=== PATIENT | male | born 1950 | race Caucasian/White ===

== ENCOUNTER 2018-02-16 15:22 | Outpatient (RCR) | payer MEDICARE ==
[2018-04-26] MEDS ORDERED: PRAV40TA2 PO (15:12)
[2018-04-26] MEDS ORDERED: TAMS0.4C2 PO (15:12)
[2018-04-26] MEDS ORDERED: LISI-552 PO (15:12)
[2018-04-26] MEDS ORDERED: OMEP20CA12 PO (15:12)
[2018-04-26] MEDS ORDERED: ZOLP12.5 PO (15:12)
[2018-05-02] MEDS ORDERED: SULF1TAB35 PO (12:12)
[2018-05-02] MEDS ORDERED: ACET1TAB43 PO (12:12)
[2018-05-02] MEDS ORDERED: CETI10TA17 PO (13:38)
[2018-05-02] MEDS ORDERED: ASPI-808 PO (13:38)
[2018-05-02] MEDS ORDERED: PRAV40TA2 PO (13:38)
== END 2018-05-17 | disposition home or self-care (01) ==
LOC: ONC 15:22
PROVIDERS: ATTEND Radiology Radiation Oncology
DX: C61 Malignant neoplasm of prostate (principal)
CPT/HCPCS: 77331; 99205

== ENCOUNTER 2018-04-26 15:03 | Outpatient (CLI) | payer MEDICARE ==
[~2018-04-26] VITALS: Ht 180.3 cm; Wt 95.3 kg
[2018-04-26] MEDS ORDERED: ZOLP12.5 PO (15:12)
[2018-04-26] MEDS ORDERED: LISI-552 PO (15:12)
[2018-04-26] MEDS ORDERED: PRAV40TA2 PO (15:12)
[2018-04-26] MEDS ORDERED: TAMS0.4C2 PO (15:12)
[2018-04-26] MEDS ORDERED: OMEP20CA12 PO (15:12)
== END 2018-04-26 15:18 | disposition home or self-care (01) ==
LOC: PREOP 15:03
PROVIDERS: ATTEND Radiology Radiation Oncology
DX: Z01.818 Encounter for other preprocedural examination (principal)

== ENCOUNTER 2018-05-02 11:45 | Day surgery (SDC) | payer MEDICARE ==
[~2018-05-02] VITALS: Ht 180.3 cm; Wt 95.3 kg
[~2018-05-02 11:45] MED LIST: LISI-552 PO; OMEP20CA12 PO; PRAV40TA2 PO; TAMS0.4C2 PO; ZOLP12.5 PO
[2018-05-02 11:53] VITALS: BP 131/91
--- NOTE | 2018-05-02 12:07 | Progress Note-Pre Operative ---
Pre-Operative Progress Note H&P Reviewed The H&P was reviewed, patient examined and no changes noted. Date Seen by Provider: May 02, 2018 Time Seen by Provider: 12:06 Date H&P Reviewed: May 02, 2018 Time H&P Reviewed: 12:06 Pre-Operative Diagnosis: Prostate cancer cT1c, PSa 4.97, Stevenson 7 (4+3) AGUSTÍN ZELAYA MD May 02, 2018 12:07
--- NOTE | 2018-05-02 12:10 | Discharge Inst-Simple/Standard ---
Discharge Inst-Standard Discharge Medications New, Converted or Re-Newed RX: RX Given to Pt/Family Patient Instructions/Follow Up Plan of Care/Instructions/FU: 1) Follow up at [facility] for one month post implant scan 05/30/18 at 10:00 am 2) Follow up with Dr. Mejia 06/01/18 at 2:15 pm Activity as Tolerated: Yes Discharge Diet: No Restrictions Other Inst to Patient Instruct patient on priest catheter removal - check with Dr. Mejia - Friday 05/04 /or Monday 05/07 morning. AGUSTÍN ZELAYA MD May 02, 2018 12:10
[2018-05-02] MEDS ORDERED: SULF1TAB35 PO (12:12)
[2018-05-02] MEDS ORDERED: ACET1TAB43 PO (12:12)
[2018-05-02] MEDS ORDERED: ceFAZolin INJECTION 1,000 MG in NS (IVPB) 50 ML IV ONE (12:15)
--- OUTSIDE RECORDS SUMMARY | 2018-05-02 12:30 | XMS REPORT | Continuity of Care Document ---
Author Author [facility] Address Unknown Phone Unavailable Allergies Active Description Code Type Severity Reaction Onset Reported/Identified Relationship to Patient Clinical Status Yes Floxin Drug Allergy N/A N/A 10/15/2011 Medications There is no data. Problems Date Dx Coded Attending Type Code Diagnosis Diagnosed By 10/15/2011 LILY CANALES APRN 473.9 CHRONIC SINUSITIS 12/17/2013 LILY CANALES APRN 599.0 URINARY TRACT INFECTION 03/13/2018 AGUSTÍN ZELAYA MD, Ot C61 MALIGNANT NEOPLASM OF PROSTATE 04/26/2018 Ot Z01.818 ENCOUNTER FOR OTHER PREPROCEDURAL EXAMIN 05/02/2018 AGUSTÍN ZELAYA MD, Ot C61 MALIGNANT NEOPLASM OF PROSTATE Procedures Code [place] [address] UA LONG DIP 12/17/2013 Results There is no data. Encounters ACCT No. Visit Date/Time Discharge Status Pt. Type Provider Facility Loc./Unit Complaint [id number] 12/17/2013 12:59:00 12/17/2013 23:59:59 CLS Outpatient LILY CANALES APRN [id number] 02/16/2018 15:22:00 02/16/2018 23:59:59 CLS Outpatient AGUSTÍN ZELAYA MD Via [facility] ONC [id number] 05/02/2018 11:45:00 ACT Outpatient AGUSTÍN ZELAYA MD [facility] PROSTATE CANCER [id number] 04/26/2018 15:03:00 Document Registration
[2018-05-02] MEDS ORDERED: PRAV40TA2 PO (13:38)
[2018-05-02] MEDS ORDERED: ASPI-808 PO (13:38)
[2018-05-02] MEDS ORDERED: CETI10TA17 PO (13:38)
[2018-05-02] MEDS: LACTATED RINGERS 1,000 ML IV PRN ×2 (13:45→15:05)
[2018-05-02] MEDS ORDERED: ONDANSETRON 4 MG/2 ML (SDV) Z0FRAN ONE (14:07)
[2018-05-02] MEDS ORDERED: proPOfol 200 MG/20 ML (DIPRIVAN) VIAL IV ONE (14:07)
[2018-05-02] MEDS ORDERED: LIDOCAINE PF 2% 2 ML (XYLOCAINE) VIAL ONE (14:07)
[2018-05-02] MEDS ORDERED: fentaNYL INJECTION 100 MCG/2 ML AMP ONE (14:08)
[2018-05-02] MEDS ORDERED: MIDAZOLAM 2 MG/2 ML (VERSED) VIAL ONE (14:08)
[2018-05-02] MEDS ORDERED: SEVOFLURANE (ULTANE) 15 ML INHAL SOLN ONE ×3 (14:12→15:10)
[2018-05-02] MEDS ORDERED: DEXAMETHASONE 10 MG/ML (DECADRON) 1 ML VIAL ONE (14:23)
[2018-05-02] MEDS ORDERED: morphine INJ 10 MG/ML 1ML (SYR OR VIAL) IVP ONE (15:30)
[2018-05-02] MEDS ORDERED: HYDROmorphone 2 MG/ML VIAL (DILAUDID) IV ONE (15:30)
[2018-05-02] MEDS ORDERED: ONDANSETRON 4 MG/2 ML (SDV) Z0FRAN IVP PRN (15:30)
--- NOTE | 2018-05-02 15:30 | Anesthesia-General Post-Op ---
General Patient Condition Mental Status/LOC: Same as Preop Cardiovascular: Satisfactory Nausea/Vomiting: Absent Respiratory: Satisfactory Pain: Controlled Complications: Absent Post Op Complications Complications None Follow Up Care/Instructions Patient Instructions None needed. Anesthesia/Patient Condition Patient Condition Patient is doing well, no complaints, stable vital signs, no apparent adverse anesthesia problems. No complications reported per nursing. SONU ROGERS CRNA May 02, 2018 15:30
--- NOTE | 2018-05-02 15:58 | Progress Note-Post Operative ---
Post-Operative Progess Note Surgeon (s)/Bagger And Stock Handler Helper (s) Surgeon AGUSTÍN ZELAYA MD Bagger And Stock Handler Helper: Jessee TRUONG MD Pre-Operative Diagnosis Prostate cancer cT1c, PSa 4.97, Veto 7 (4+3) Post-Operative Diagnosis Same as pre-op Procedure & Operative Findings Date of Procedure 05/02/18 Procedure Performed/Findings 67% Cesium 131 permanent prostate seed implant, cystogram and insertion of biodegradable prostate-rectal spacer utilizing the SpaceOAR system Prostate volume 33 cc Anesthesia Type General Estimated Blood Loss Estimated blood loss (mL): Minimal Specimens/Packing Specimens Removed None Packing: None AGUSTÍN ZELAYA MD May 02, 2018 15:58
[2018-05-02 16:15] VITALS: BP 147/83
[2018-05-02] MEDS ORDERED: APAP 300 MG/CODEINE 30 MG (TYLENOL #3) TAB PO ONE (16:30)
[2018-05-02 16:45] VITALS: BP 135/84
[2018-05-02 17:35] VITALS: BP 138/84
--- NOTE | 2018-05-02 17:41 | Diagnostic Imaging Report ---
INDICATION: Fluoroscopy during brachytherapy. PROCEDURE: Fluoroscopy was provided for Dr. Little during brachytherapy. 9 seconds of fluoroscopy was utilized. Single image demonstrates multiple radiation seed implants within the prostate. IMPRESSION: Fluoroscopy for brachytherapy. Dictated by: Dictated on workstation # [id number]
== END 2018-05-02 17:35 | disposition home or self-care (01) ==
LOC: SDC 11:45
PROVIDERS: ATTEND Radiology Radiation Oncology
DX: C61 Malignant neoplasm of prostate (principal); Z11.2 Encounter for screening for other bacterial diseases; E78.00 Pure hypercholesterolemia, unspecified; I10 Essential (primary) hypertension; E78.5 Hyperlipidemia, unspecified; K21.9 Gastro-esophageal reflux disease without esophagitis; Z85.828 Personal history of other malignant neoplasm of skin; Z87.891 Personal history of nicotine dependence; Z79.899 Other long term (current) drug therapy
CPT/HCPCS: 76965; 77290; 77318; 77332; 77370; 77470; 77778; 87081

== ENCOUNTER 2018-05-30 12:56 | Outpatient (RCR) | payer MEDICARE ==
[~2018-05-30 12:56] MED LIST changes: +ACET1TAB43 PO; +ASPI-808 PO; +CETI10TA17 PO; +SULF1TAB35 PO
[2018-05-30 13:27] LABS: BUN/CREATININE RATIO 15; CREATININE SERUM 1.02 MG/DL (0.60-1.30); GFR ESTIMATED > 60
== END 2018-08-28 | disposition home or self-care (01) ==
LOC: ONC 12:56
PROVIDERS: ATTEND Radiology Radiation Oncology
DX: C61 Malignant neoplasm of prostate (principal); E78.00 Pure hypercholesterolemia, unspecified; I10 Essential (primary) hypertension; E78.5 Hyperlipidemia, unspecified; K21.9 Gastro-esophageal reflux disease without esophagitis; Z85.828 Personal history of other malignant neoplasm of skin; Z87.891 Personal history of nicotine dependence; Z79.899 Other long term (current) drug therapy
CPT/HCPCS: 36415; 77290; 77295; 77336; 82565; 84520